=== PATIENT | female | born 1975 | race Caucasian/White ===

== ENCOUNTER 2018-10-30 13:10 | Emergency (ER) | payer MEDICARE, MEDICAID ==
[2018-10-30 13:27] VITALS: BP 144/87
--- NOTE | 2018-10-30 13:54 | UC ---
Bite Injury/Animal HPI - HPI Summary HPI Summary: 43 y/o female presents to the urgent care c/o her cat bite her on her RT wrist and hand yesterday around 1500pm. Pt reports her cat saw a dog over her window and when she went to take her away from there he bite her. She states her cat is UTD w/ all vaccines and he is now with the Vet to be neuter. She has the cat for over a year. Pt an't recall when was the last Tetanus vaccine. Pt reports this morning when she woke up her wrist was red, swollen and painful. Pain is 6/ 10. Pt has Hx of chronic back pain, thus she took Oxycodone this morning to alleviate pain. Yesterday she irrigated the wound and applied Neosporyn over the bite. Pain is worse w/ movement and her hand is down. Pt denies fever, numbness or tingling sensation over the Rt arm, axillary pain, SOB, chest pain, abdominal pain, N/V/d. - History of Current Complaint Chief Complaint: UCBiteInjury Stated Complaint: CAT BITE Time Seen by Provider: 10/30/18 13:50 Hx Obtained From: Patient Hx Last Menstrual Period: 10/29/18 ?: No Severity Currently: Moderate Severity Initially: Moderate Pain Intensity: 6 Pain Scale Used: 0-10 Numeric Onset/Duration: Sudden Onset, Lasting Days - 1 day, Still Present, Worse Since - this morning Type of Bite: Pet - bit her on the Rt wrist Has Animal Been Immunized?: Yes Character: Puncture, Abrasion/Laceration - scattered abrasion over the dorsal side of the Rt hand and Rt wrist Associated Signs And Symptoms: Positive: Erythema, Swelling, Limited ROM. Negative: Fever, Drainage, Lymphadenopathy, Numbness/Tingling Hx of Bite: Provoked by: Animal Available for Observation: Yes Animal Control Notified: Yes - Risk Factors Infection/Sepsis Risk Factors: Negative - Allergies/Home Medications Allergies/Adverse Reactions: Allergies Allergy/AdvReac Type Severity Reaction Status Date / Time No Known Allergies Allergy Verified 10/30/18 13:28 PMH/Surg Hx/FS Hx/Imm Hx Previously Healthy: Yes Neurological History: Migraine Other Neurological History: chronic back pain Psychological History: Anxiety, Depression Other History Of: Negative For: HIV, Hepatitis B, Hepatitis C, Anticoagulant Therapy - Surgical History Surgical History: Yes Surgery Procedure, Year, and Place: tubal [id number]. L5-S1 [id number]. L5-S1 [id number]. 2012 - Placement of trial dorsal stimulator -. NOW REMOVED 12/14/12 ( ALL PARTS INCLUDING WIRES) . 08/24/2014 Revision of dorsal column stimulator. RFA-2 X LAST YEAR - Family History Known Family History: Positive: Cardiac Disease Negative: Hypertension, Diabetes, Renal Disease - Social History Occupation: Disabled Lives: With Family Alcohol Use: None Alcohol Amount: 1 month Substance Use Type: Marijuana Substance Use Comment - Amount & Last Used: medical Smoking Status (MU): Light Every Day Tobacco Smoker Type: Cigarettes Amount Used/How Often: 1/2 PPD Length of Time of Smoking/Using Tobacco: 1 pack every 3 days Have You Smoked in the Last Year: Yes Household Exposure Type: Cigarettes - Immunization History Most Recent Influenza Vaccination: never Most Recent Tetanus Shot: Within 10 years Most Recent Pneumonia Vaccination: never Hx Tetanus, Diphtheria Vaccination: No - 2006 Review of Systems All Other Systems Reviewed And Are Negative: Yes Constitutional: Positive: Negative Skin: Positive: Rash - red over the rt wrist s/p cat bite w/ swelling Eyes: Positive: Negative ENT: Positive: Negative Respiratory: Positive: Negative Cardiovascular: Positive: Negative Gastrointestinal: Positive: Negative Genitourinary: Positive: Negative Motor: Positive: Negative Neurovascular: Positive: Negative Musculoskeletal: Positive: Decreased ROM - Rt wrist, Other: - RT wrist pain s/p cat bite Neurological: Positive: Negative Psychological: Positive: Negative Is Patient Immunocompromised?: No Physical Exam - Summary Physical Exam Summary: Vital Signs Reviewed: Yes General: well appearing, well nourished female in no acute apparent pain distress, sitting comfortably on examining table Eye Exam: Normal Eyes: Positive: Conjunctiva Clear - PERRLA< EOMI, fundi grossly normal ENT: Positive: Normal ENT inspection, Hearing grossly normal, Pharynx normal, TMs normal Neck: Positive: Supple, Nontender, No Lymphadenopathy Respiratory: Positive: Chest non-tender, Lungs clear, Normal breath sounds, No respiratory distress Cardiovascular: Positive: RRR, No Murmur, Pulses Normal, Brisk Capillary Refill Abdomen Description: Positive: Nontender, No Organomegaly, Soft. Negative: CVA Tenderness (R), CVA Tenderness (L) Bowel Sounds: Positive: Present Musculoskeletal: Positive: Strength Intact, ROM Intact, No Edema Neurological: Positive: Alert, Muscle Tone Normal Psychological Exam: Normal Skin: Positive: Positive erythematous patch w/ indistinct borders, warm and tender to palpation, no drainage observed over the dorsal side of the RT wirst about 3.0cm x4.0cm in size w/ scattered cat scratches and 2 puncture bite over the ventral side of the Rt wrist, tender to palpation and moderate soft tissue swelling. Decrease ROM of the Rt wrist due to pain. pulses WNL, capillary refill brisk, sensation WNL. Triage Information Reviewed: Yes Vital Signs: Initial Vital Signs Temp 98 F 10/30/18 13:24 Pulse 93 10/30/18 13:24 Resp 18 10/30/18 13:24 BP 144/87 10/30/18 13:24 Pulse Ox 100 10/30/18 13:24 Bite Injury Course/Dx - Course Course Of Treatment: 43 y/o female presents to the urgent care c/o her cat bite her on her RT wrist and hand yesterday around 1500pm. Pt reports her cat saw a dog over her window and when she went to take her away from there he bite her. She states her cat is UTD w/ all vaccines and he is now with the Vet to be neuter. She has the cat for over a year. Pt an't recall when was the last Tetanus vaccine. Pt reports this morning when she woke up her wrist was red, swollen and painful. Pain is 6/ 10. Pt has Hx of chronic back pain, thus she took Oxycodone this morning to alleviate pain. Yesterday she irrigated the wound and applied Neosporyn over the bite. Pain is worse w/ movement and her hand is down. Pt denies fever, numbness or tingling sensation over the Rt arm, axillary pain, SOB, chest pain, abdominal pain, N/V/d. Hx obtained. Pt w/ 2 puncture bites over the ventral side of Rt wrist and scattered scratches over the dorsal side and dorsal side of RT hand w/ surrounding cellulitis about 3.0x4.cm in size and decrease ROM or the Rt wrist due to pain on examination.Pt's symptoms discussed w/ DR Jeffery and she recommended X-ray or the RT wrist. Rt Wrist Sx-ray ordered, IMPRESSION: No evidence of subcutaneous air is noted. At the carpometacarpal joint at the dorsum of the wrist there is some bony fragmentation which appears chronic at the junction between the capitate and second and third metacarpal. Wounds irrigated w/ pressure by the nurse. Bacitracin oint applied over affected areas and wound covered w/ sterile dry dressing. Pt given a shoulder sling to keep hand elevated to decrease swelling. Pt given Tdap by the Nurse. pt tolerated well IM inj. Pt Rx Augmentin PO and advised to f/u in 2 days here at the clinic for wound check up. However advised if she develops fever or rash doubles in size after 48 hrs of taken antibiotic to immediately go to the ER for further management.Pt's BP is elevated today advised to decrease salt in diet, monitor BP and f/u with PCP for further management. D/C instructions explained. Pt understood and agreed w/ plan of care. - Differential Dx/Diagnosis Differential Diagnosis/HQI/PQRI: Cellulitis, Laceration, Puncture, Rabies Exposure, Superficial Infection, Deep Space Infection Provider Diagnosis: Cat bite of right wrist, Cellulitis, Elevated BP without diagnosis of hypertension Discharge - Sign-Out/Discharge Documenting (check all that apply): Patient Departure - d/c home All imaging exams completed and their final reports reviewed: Yes - Discharge Plan Condition: Stable Disposition: HOME Prescriptions: Amoxicillin/Clavulanate TAB* [Augmentin TAB 875*] 875 mg PO BID #20 tab Bacitracin OINTMENT* 1 applic TOPICAL BID #1 tube Patient Education Materials: Animal Bite (ED) Referrals: Joao Vincent DO [Primary Care Provider] - 2 Days Additional Instructions: 1-Please take full course of Antibiotic as directed. Please take yogurt w/ probiotics or culturelle to protect your GI system. continue taking your medication for pain. 2- If redness and swelling doubles in size beyond what was demarcated after 48 hrs of taking antibiotic and fever develops please go to the ER immediately. Otherwise, return in 2 days for check up to make sure symptoms are improving 3-Keep your hand elevated w/ the shoulder sling, avoid too much flexion or heavy lifting or strenuous exercise w/ your hand. Keep wound clean and dry and apply Bacitracin oint as directed. 4-Your BP is elevated today. please decrease salt in your diet, monitor BP and if it continues to be elevated please f/u with your PCP for further management. - Billing Disposition and Condition Condition: STABLE Disposition: Home
[2018-10-30] MEDS ORDERED: Tetan/Diph/Pertus SYR(Tdap)* 0.5 ML SYR(BOOSTRIX) use SYR IM ONE (14:03)
== END 2018-10-30 15:15 | disposition home or self-care (01) ==
LOC: UCEAST 13:10
DX: S61.552A Open bite of left wrist, initial encounter (principal); L03.113 Cellulitis of right upper limb; R03.0 Elevated blood-pressure reading, without diagnosis of hypertension; F17.210 Nicotine dependence, cigarettes, uncomplicated; W55.01XA Bitten by cat, initial encounter; Y92.9 Unspecified place or not applicable
CPT/HCPCS: 90471; 90715; 99212; G0463